=== PATIENT | male | born 1965 | race Caucasian/White ===

== ENCOUNTER 2019-01-11 11:37 | Day surgery (SDC) | payer BC ==
[2019-01-11] MEDS ORDERED: PROPOFOL 60 ML (13:37)
== END 2019-01-11 15:43 | disposition home or self-care (01) ==
LOC: GIL 11:37
DX: Z12.11 Encounter for screening for malignant neoplasm of colon (principal); K64.8 Other hemorrhoids; K63.89 Other specified diseases of intestine
CPT/HCPCS: 45378; 88305